=== PATIENT | male | born 1960 | race Caucasian/White ===

== ENCOUNTER → 2018-08-08 | Day surgery (SDC) | payer BC ==
[~2018-08-08] MED LIST: ASPIRIN EC 325 MG TAB PO ONE; ATROPINE SULFATE 1 MG/10 ML SYR IVP PRN; DIAZEPAM 5 MG TAB ONE; DIAZEPAM 5 MG TAB PO ONE; FAMOTIDINE 20 MG TAB ONE; FAMOTIDINE 20 MG TAB PO ONE; HEPARIN 10,000 UNIT/10 ML MDV (1,000 UNIT/ML) ONE; HYDROCODONE/APAP 5/325 TAB PO PRN; IOPAMIDOL (ISOVUE-370) 150 ML BTL IV ONE; LIDOCAINE 1% 300 MG/30 ML SDV ONE; MIDAZOLAM 2 MG/2 ML VIAL ONE; NS 1,000 ML IV ONE; ONDANSETRON 4 MG/2 ML VIAL IVP PRN; OXYCODONE/APAP 5/325 TAB PO PRN; VERAPAMIL 5 MG/2 ML VIAL ONE; diphenhydrAMINE 25 MG CAP PO ONE; fentaNYL 100 MCG/2 ML INJ ONE
[2018-08-08 09:29] LABS: PLATELET COUNT 217 10^3/uL (150-400)
[2018-08-08 09:53] LABS: INR 1.05 (0.83-1.16); PROTIME(PATIENT) 13.3 SEC (12.0-15.0)
--- NOTE | 2018-08-08 10:04 | PDHPUP ---
History & Physical Update H&P update statement: This history and physical update is based on an assessment of the patient which was completed after admission or registration (within 24 hours), but prior to the surgery/procedure. H&P update: H&P reviewed & patient examined, no change in patient's condition since H&P completed
--- NOTE | 2018-08-08 10:04 | PDPROPOC ---
Sedation Plan of Care Sedation Plan of Care: vital signs stable, mental status noted, patient educated of risks, benefits, alternatives, patient can tolerate sedation ASA Classification: ASA 1 Planned drugs: fentanyl, midazolam Mallampati Score: Class 2 Mallampati Reference Image: Patient passed 3-3-2 rule?: Yes
--- NOTE | 2018-08-08 11:17 | PDDXCAT ---
Diagnostic Cath Note - . Date: 08/08/18 Tool And Die Inspector: Svetlana Indication: other (Severe aortic stenosis, history of syncope, considering cardiovascular surgery.) - Procedure Access: right wrist Procedure: coronary angiography - Materials Left Heart Cath size: 5F Left Heart Cath materials: JL3.5 - Findings-Left Heart Catheterization LM: Large caliber vessel. Bifurcates into the left anterior descending and circumflex. No significant disease. LAD: Large caliber transapical vessel. 2 diagonal branches identified. No obstructive disease. LCX: Large caliber vessel. 2 obtuse marginal branches. No significant disease. RCA: Large caliber, dominant vessel. A bifurcating PDA and several small posterolateral branches are noted. There was an 80% lesion appreciated at the ostium of 1 of the branches of the bifurcating PDA. LVEF: The aortic valve was not crossed. Complications: None. Estimated blood loss: <50ml Closure method: TR Band Assessment: 1. Critical aortic stenosis with a peak transaortic velocity by echocardiography in excess of 4 m/sec. Preserved left ventricular systolic function. 2. History of syncope. 3. Single-vessel coronary artery disease with an 80% ostial lesion noted at the origin of a branch of the posterior descending artery. Plan: The patient will be referred to Cardiovascular surgery regarding consideration for aortic valve replacement surgery and single-vessel bypass versus hybrid procedure. Intervention: None.
--- NOTE | 2018-08-10 12:15 | CPEKG ---
Test Reason : OPEN Blood Pressure : / mmHG Vent. Rate : 085 BPM Atrial Rate : 086 BPM P-R Int : 167 ms QRS Dur : 084 ms QT Int : 354 ms P-R-T Axes : 043 -11 066 degrees QTc Int : 421 ms Sinus rhythm Atrial premature complexes Probable left atrial enlargement Confirmed by Han Melgar ([id number]) on 08/10/2018 12:14:43 PM Referred By: Shoaib Mota Confirmed By:Han Melgar
== END ==
LOC: FCATH 09:06
PROVIDERS: ATTEND Internal Medicine Cardiovascular Disease
DX: I35.0 Nonrheumatic aortic (valve) stenosis (principal); I25.10 Atherosclerotic heart disease of native coronary artery without angina pectoris; R55 Syncope and collapse; I50.9 Heart failure, unspecified; F41.9 Anxiety disorder, unspecified; K21.9 Gastro-esophageal reflux disease without esophagitis; I11.0 Hypertensive heart disease with heart failure; E78.5 Hyperlipidemia, unspecified; E66.01 Morbid (severe) obesity due to excess calories; G47.30 Sleep apnea, unspecified; R01.1 Cardiac murmur, unspecified; Z82.49 Family history of ischemic heart disease and other diseases of the circulatory system; Z82.3 Family history of stroke; Z96.651 Presence of right artificial knee joint; Z98.1 Arthrodesis status
CPT/HCPCS: 93005; 93454; C1769; J1644; J2250; J3010; Q9967

== ENCOUNTER → 2018-08-26 | Outpatient (CLI) | payer BC | LOC: FIMAGING 15:14 | PROVIDERS: ATTEND Thoracic Surgery (Cardiothoracic Vascular Surgery) | DX: I35.0 Nonrheumatic aortic (valve) stenosis (principal); I25.10 Atherosclerotic heart disease of native coronary artery without angina pectoris ==

== ENCOUNTER 2018-09-09 06:06 | Inpatient (IN) | payer BC ==
[~2018-09-09 06:06] MED LIST changes: +ALBUMIN 5% 250 ML BOTTLE IV ONE; -ASPIRIN EC 325 MG TAB PO ONE; -ATROPINE SULFATE 1 MG/10 ML SYR IVP PRN; +CARDIOPLEGIC SOLUTION 1,052.8 ML PF ONE; -DIAZEPAM 5 MG TAB ONE; -DIAZEPAM 5 MG TAB PO ONE; -FAMOTIDINE 20 MG TAB ONE; -FAMOTIDINE 20 MG TAB PO ONE; -HYDROCODONE/APAP 5/325 TAB PO PRN; +INSULIN REGULAR HUMAN 100 UNIT in NS 100 ML IV ONE; -IOPAMIDOL (ISOVUE-370) 150 ML BTL IV ONE; -LIDOCAINE 1% 300 MG/30 ML SDV ONE; +LIDOCAINE 2% 100 MG/5 ML SYR ONE; +MAGNESIUM SULFATE 1 GM/2 ML VIAL ONE; +MANNITOL 25% 12.5 GM/50 ML VIAL IVP ONE; -MIDAZOLAM 2 MG/2 ML VIAL ONE; +NOREPINEPHRINE BITARTRATE 16 MG in NS 250 ML IV ONE; -NS 1,000 ML IV ONE; -ONDANSETRON 4 MG/2 ML VIAL IVP PRN; -OXYCODONE/APAP 5/325 TAB PO PRN; +PHENYLEPHRINE HCL 50 MG in NS 250 ML IV ONE; +VERAPAMIL 5 MG, NITROGLYCERIN 2.5 MG, HEPARIN 500 UNIT, SODIUM BICARBONATE 0.2 MEQ in L... MISC ONE; -VERAPAMIL 5 MG/2 ML VIAL ONE; -diphenhydrAMINE 25 MG CAP PO ONE; -fentaNYL 100 MCG/2 ML INJ ONE
[2018-09-09] MEDS ORDERED: ceFAZolin 2 GM/DEXTROSE 100 ML IV ONE (06:33)
[2018-09-09] MEDS ORDERED: niCARdipine/NACL 200 ML IV ONE (06:33)
[2018-09-09] MEDS ORDERED: CITRATE DEXTROSE SOLN 500 ML BAG MISC ONE (06:33)
[2018-09-09] MEDS ORDERED: MUPIROCIN 2% 22 GM OINT NS ONE (06:33)
[2018-09-09] MEDS ORDERED: AMINOCAPROIC ACID 5 GM/20 ML VIAL IV ONE (06:33)
[2018-09-09] MEDS ORDERED: CALCIUM CHLORIDE 1 GM/10 ML INJ ONE ×2 (06:39→06:42)
[2018-09-09] MEDS ORDERED: PROTAMINE SULFATE 50 MG/5 ML VIAL IVP ONE ×2 (06:39→11:25)
[2018-09-09] MEDS ORDERED: MILRINONE/DEXTROSE/100 ML BAG IV ONE (06:39)
[2018-09-09] MEDS ORDERED: HEPARIN 10,000 UNIT/10 ML MDV (1,000 UNIT/ML) ONE ×2 (06:40→06:43)
[2018-09-09] MEDS ORDERED: AMINOCAPROIC ACID 5 GM/20 ML VIAL ONE ×2 (06:40→06:42)
[2018-09-09] MEDS ORDERED: NA BICARBONATE 50 MEQ/50 ML VIAL ONE (06:40)
[2018-09-09] MEDS ORDERED: ADENOSINE 6 MG/2 ML VIAL ONE (06:41)
[2018-09-09] MEDS ORDERED: ceFAZolin 1 GM VIAL ONE (06:41)
[2018-09-09] MEDS ORDERED: AMIODARONE HCL 150 MG/3 ML VIAL ONE ×2 (06:41→06:43)
[2018-09-09] MEDS ORDERED: niCARdipine/NACL/200 ML BAG IV ONE (06:41)
[2018-09-09] MEDS ORDERED: NITROGLYCERIN/D5W 50 MG/250 ML BOTTLE IV ONE (06:41)
[2018-09-09] MEDS ORDERED: DOPamine/DEXTROSE 400 MG/250 ML BAG IV ONE (06:41)
[2018-09-09] MEDS ORDERED: ALBUMIN 5% 250 ML BOTTLE IV ONE (06:42)
[2018-09-09] MEDS ORDERED: SODIUM BICARBONATE 50 MEQ/50 ML SYR ONE (06:42)
[2018-09-09] MEDS ORDERED: LIDOCAINE 2% 100 MG/5 ML SYR ONE (06:43)
[2018-09-09] MEDS ORDERED: CITRATE DEXTROSE SOLN 500 ML BAG ONE (06:43)
[2018-09-09] MEDS ORDERED: MAGNESIUM SULFATE 1 GM/2 ML VIAL ONE (06:43)
[2018-09-09] MEDS ORDERED: methylPREDNISolone SOD SUCC 1 GM/8 ML VIAL ONE (06:43)
[2018-09-09] MEDS ORDERED: MIDAZOLAM 2 MG/2 ML VIAL IVP ONE (06:53)
--- NOTE | 2018-09-09 06:53 | PDANEPAE ---
ANE History of Present Illness here for avr/cabg ANE Past Medical History - Cardiovascular History Hx Hypertension: Yes Hx Arrhythmias: No Hx Chest Pain: No Hx Coronary Artery / Peripheral Vascular Disease: No Hx CHF / Valvular Disease: Yes Hx Palpitations: Yes Cardiovascular History Comment: HLD - Pulmonary History Hx COPD: No Hx Asthma/Reactive Airway Disease: No Hx Recent Upper Respiratory Infection: No Hx Oxygen in Use at Home: No Hx Sleep Apnea: Yes Sleep Apnea Screening Result - Last Documented: Positive Pulmonary History Comment: ARI positive, uses cpap at night - Neurologic History Hx Cerebrovascular Accident: No Hx Seizures: No Hx Dementia: No Neurologic History Comment: peripheral neuropathy in hands and from knee down - Endocrine History Hx Diabetes: No - Renal History Hx Renal Disorders: No - Liver History Hx Hepatic Disorders: No - Neurological & Psychiatric Hx Hx Neurological and Psychiatric Disorders: Yes Neurological / Psychiatric History Comment: depression - Cancer History Hx Cancer: No - Congenital Disorder History Hx Congenital Disorders: No - GI History Hx Gastrointestinal Disorders: Yes Gastrointestinal History Comment: GERD - Other Health History Other Health History: wears glasses. hx DVT 2016. chronic sciatic pain, BLE' s. abdominal hernia - Chronic Pain History Chronic Pain: Yes - Surgical History Prior Surgeries: knee surgeries x 4. appendectomy. 2 level lumbar fusion. right wrist surgery ANE Review of Systems Review of systems is: negative Review of Systems: - Exercise capacity Exercise capacity: <4 METS METS (RN): 3 METS ANE Patient History - Allergies Allergies/Adverse Reactions: No Known Allergies Allergy (Verified 09/09/18 06:35) - Home Medications Home medications: home medication list seen and reviewed Home Medications: Atorvastatin Calcium [Lipitor 40 mg (*)] 40 mg PO HS 08/03/18 [Last Taken ] DULoxetine [Cymbalta 20 MG (RX)] 20 mg PO DAILY 08/03/18 [Last Taken 09/08/18] Doxazosin Mesylate [Cardura] 2 mg PO DAILY 08/03/18 [Last Taken 08/26/18] Finasteride [Proscar 5 MG (*)] 5 mg PO DAILY 08/03/18 [Last Taken 09/02/18] Furosemide [Lasix 40 MG (*)] 40 mg PO SUSA@09,21 08/03/18 [Last Taken 08/26/18] Ibuprofen [Motrin (*)] 200 - 600 mg PO DAILY PRN 08/03/18 [Last Taken 09/08/18] Metoprolol Tartrate [Lopressor 50 mg (*)] 50 mg PO DAILY 08/03/18 [Last Taken ] Omeprazole 20 mg PO DAILY 08/03/18 [Last Taken 09/07/18] Potassium Cl [Klor-Con 20 meq (*)] 20 meq PO BID 08/03/18 [Last Taken 08/19/18] Pramipexole Di-HCl [Mirapex] 0.75 mg PO DAILY 08/03/18 [Last Taken 09/08/18] Tadalafil [Cialis] 20 mg PO AD PRN 08/03/18 [Last Taken Unknown] tiZANidine HCL [Zanaflex 2MG (*)] 4 mg PO HS 08/03/18 [Last Taken 09/08/18] - NPO status NPO Status: no food or drink >8 hours - Smoking Hx Smoking Status: Never smoked - Family Anes Hx Family Hx Anesthesia Complications: none ANE Labs/Vital Signs - Vital Signs Vital Signs: reviewed preoperatively; see RN documention for details Height: 182.88 cm Weight: 145.15 kg ANE Physical Exam - Airway Neck exam: FROM Mallampati Score: Class 1 - Pulmonary Pulmonary: no respiratory distress - Cardiovascular Cardiovascular: regular rate and rhythym - ASA Status ASA Status: IV ANE Anesthesia Plan Anesthesia Plan: general endotracheal anesthesia Lines/Monitors: arterial line, central line, BASILIO
[2018-09-09] MEDS ORDERED: PAPAVERINE HCL 60 MG/2 ML SDV ONE ×2 (06:56→09:15)
[2018-09-09] MEDS ORDERED: VERAPAMIL 5 MG/2 ML VIAL ONE (06:56)
[2018-09-09] MEDS ORDERED: MINERAL OIL 10 ML VIAL ONE (06:57)
[2018-09-09] MEDS ORDERED: LR 1,000 ML IV ONE (07:05)
[2018-09-09] MEDS ORDERED: fentaNYL 250 MCG/5 ML INJ ONE ×2 (07:06→11:07)
[2018-09-09] MEDS ORDERED: PROPOFOL/EMULSION 500 MG/50 ML BOTTLE IV ONE ×2 (07:06→08:32)
[2018-09-09] MEDS ORDERED: ROCURONIUM 100 MG/10 ML VIAL ONE (07:07)
[2018-09-09] MEDS ORDERED: PHENYLEPHRINE HCL 100 MCG/ML SYR ONE ×3 (07:07→12:14)
[2018-09-09] MEDS ORDERED: ePHEDrine SULFATE 25 MG/5 ML SYR ONE ×3 (07:14→12:14)
[2018-09-09] MEDS ORDERED: KETAMINE 200 MG/20 ML VIAL ONE (08:23)
[2018-09-09] MEDS ORDERED: MIDAZOLAM 2 MG/2 ML VIAL ONE (09:36)
[2018-09-09] MEDS ORDERED: DEXMEDETOMIDINE HCL 400 MCG in NS 100 ML IV SCH (11:30)
[2018-09-09] MEDS ORDERED: ACETAMINOPHEN 650 MG SUPP PR PRN (12:15)
[2018-09-09] MEDS ORDERED: ONDANSETRON DISINTEGRATING 4 MG TAB PO PRN (12:15)
[2018-09-09] MEDS ORDERED: POLYETHYLENE GLYCOL 3350 17 GM PKT PO PRN (12:15)
[2018-09-09] MEDS ORDERED: POTASSIUM Cl (KCl) 50 ML IV PRN (12:15)
[2018-09-09] MEDS ORDERED: CEPACOL LOZENGE PO PRN (12:15)
[2018-09-09] MEDS ORDERED: LACTULOSE 20 GM/30 ML UDCUP PO PRN (12:15)
[2018-09-09] MEDS ORDERED: D50W 25 GM/50 ML SYR IVP PRN (12:15)
[2018-09-09] MEDS ORDERED: PANTOPRAZOLE SODIUM 40 MG VIAL IVP ONE (12:15)
[2018-09-09] MEDS ORDERED: MAGNESIUM HYDROXIDE 30 ML UDCUP PO PRN (12:15)
[2018-09-09] MEDS ORDERED: NS 1,000 ML IV SCH (12:15)
[2018-09-09] MEDS ORDERED: SODIUM CL NASAL 45 ML BTL EACHNARE PRN (12:15)
[2018-09-09] MEDS ORDERED: BISACODYL 10 MG SUPP PR PRN (12:15)
[2018-09-09] MEDS ORDERED: MEPERIDINE 25 MG/0.5 ML AMP IVP PRN (12:15)
[2018-09-09] MEDS ORDERED: METOCLOPRAMIDE 10 MG/2 ML VIAL IVP PRN (12:15)
[2018-09-09] MEDS ORDERED: ONDANSETRON 4 MG/2 ML VIAL IVP PRN (12:15)
[2018-09-09] MEDS ORDERED: INSULIN REGULAR HUMAN 100 UNIT in NS 100 ML IV SCH (12:30)
[2018-09-09] MEDS: ALBUMIN 5% 250 ML IV PRN ×2 (12:49→15:34)
--- NOTE | 2018-09-09 12:58 | PDMN ---
Medical Necessity Medical necessity: [facility] S290 Cardiac Valve Replacement or Repair, 5 days: 57 yo s /p CABG w/ aortic valve replacement, [facility] IP only
[2018-09-09] MEDS: niCARdipine/NACL 200 ML IV SCH (13:30)
[2018-09-09] MEDS ORDERED: ceFAZolin 2 GM/DEXTROSE 100 ML IV SCH ×2 (14:00→22:00)
[2018-09-09] MEDS ORDERED: KETOROLAC 30 MG/1 ML SDV ONE (14:15)
[2018-09-09] MEDS ORDERED: PANTOPRAZOLE SODIUM 40 MG VIAL ONE (14:26)
[2018-09-09] MEDS ORDERED: KETOROLAC 30 MG/1 ML SDV IVP ONE (14:45)
[2018-09-09] MEDS: ceFAZolin 2 GM/DEXTROSE 100 ML IV SCH ×2 (14:47→21:47)
--- NOTE | 2018-09-09 17:14 | GCON ---
[f rep st] CONSULTATION PULMONARY/CRITICAL CARE CONSULTATION. REFERRING PHYSICIAN: Ambrose Rodriguez DO REASON FOR REFERRAL: Evaluation and management of obstructive sleep apnea and hyperglycemia. HISTORY OF PRESENT ILLNESS: The patient is a 57-year-old male with a history of hypertension, sleep apnea, who was admitted to the hospital today for elective aortic valve repair due to possible bicusp id aortic valve with aortic stenosis. He also had single-vessel coronary artery disease. He was sym ptomatic with an episode of syncope. His intraoperative course was unremarkable, and he was extubate d shortly after return from the operating room. He currently states his pain control is fairly good, with both substernal and back pain. He denies dyspnea. PAST MEDICAL HISTORY: 1. Obstructive sleep apnea. He states that this was diagnosed about 30 years ago and he has been on CPAP ever since. He is unable to sleep well without CPAP, and he uses it nightly. [place], and he moved here about 2-1/2 years ago. Since that time, he has not had any [facility] ent supplies and no one has been checking his CPAP data downloads. He feels that he sleeps well with it. He sometimes has difficulty using [place] in [place] , because there is no power source for his CPAP. 2. Hypertension. 3. Obesity. MEDICATIONS: At the time of admission include atorvastatin, Cymbalta, finasteride, Lasix, metoprolol , omeprazole, pramipexole. FAMILY HISTORY: Unremarkable. REVIEW OF SYSTEMS: A 10-point review of systems adds nothing to the History of Present Illness. PHYSICAL EXAMINATION: GENERAL: The patient is awake and alert, in no acute distress. VITAL SIGNS: Blood pressure 103/55 with a heart rate of 61. He is afebrile. Oxygen saturations are 98% on 4 L. HEENT: Normocephalic and atraumatic. No icterus. NECK: No JVD. Trachea is midline. CHEST: Ga ar to auscultation. CARDIAC: Regular rate and rhythm without murmur. ABDOMEN: Soft, nontender. B owel sounds are present. EXTREMITIES: No clubbing, cyanosis, or edema. LABORATORY DATA: Chemistry group is remarkable only for glucose of 142. Hemoglobin is 14.6. Arteri al blood gas shows a pH of 7.35 with a pO2 of 121, a CO2 41 and a bicarbonate of 23. IMAGING: Chest x-ray shows some cardiomegaly and mild pulmonary venous hypertension. Images reviewe d by me. ASSESSMENT: 1. Status post aortic valve replacement and single-vessel CABG. The patient's perioperative course has been unremarkable, and he is extubated and comfortable several hours after returning from the ope rating room. 2. Hyperglycemia. The patient has mild hyperglycemia without prior history of diabetes. 3. Obstructive sleep apnea. The patient has long-standing obstructive sleep apnea that has been nickie ated with CPAP. It is unclear what the current settings are or whether they are efficacious, althoug h he reports good quality sleep. He has not had new supplies in several years. RECOMMENDATIONS: 1. Insulin drip. 2. The patient will use his own CPAP while here in the hospital. 3. I will see the patient as an outpatient, at which time I will review his CPAP download and order new supplies. /[id number]/MODL
--- NOTE | 2018-09-09 17:20 | CPEKG ---
Test Reason : OPEN Blood Pressure : / mmHG Vent. Rate : 059 BPM Atrial Rate : 059 BPM P-R Int : 189 ms QRS Dur : 154 ms QT Int : 527 ms P-R-T Axes : 073 052 -02 degrees QTc Int : 523 ms Sinus rhythm Left bundle branch block Confirmed by Raffi Diallo ([id number]) on 09/09/2018 5:20:14 PM Referred By: Ambrose Rodriguez Confirmed By:Raffi Diallo
--- NOTE | 2018-09-09 18:00 | GOP ---
[f rep st] OPERATIVE REPORT DATE OF OPERATION: 09/09/2018 SURGEON: Ambrose Rodriguez DO QUALITY ASSURANCE INSPECTOR: Geovany. ANESTHESIOLOGIST: Star. PREOPERATIVE DIAGNOSIS: Aortic stenosis and arteriosclerotic heart disease. POSTOPERATIVE DIAGNOSIS: Aortic stenosis and arteriosclerotic heart disease. PROCEDURE PERFORMED: 1. Aortic valve replacement with #27 Intuity bioprosthetic valve. 2. Free left internal mammary artery to the posterior descending artery. FINDINGS: DESCRIPTION OF PROCEDURE: Patient was consented for surgery, brought to the operating room, intubate d. Monitoring lines were placed. He was prepped and draped in sterile classical manner. Sternotomy was performed. Mammary was harvested. It was an excellent 2.8 to 3 mm vessel in its entire course. It was harvested and removed from the chest wall for free graft. Proximal and distal sites were ov ersewn. We then opened the pericardium, cannulated in the standard fashion. Bypass was begun. A ca rdioplegic arrest was obtained with antegrade cardioplegia, retrograde cardioplegia, topical hypother robert, and systemic cooling. Del Nido protocol was utilized. Initially, a very small 1.2-1.5 mm PDA w as grafted in its proximal portion with the free left internal mammary artery. It was tacked to the epicardium. We then opened the aorta and excised a heavily calcified trileaflet valve. Anulus was d ebrided. LV chamber was irrigated. We then sized the patient for a 27 Intuity valve. We placed 3 T iCron sutures at the misael of the annuli and passed them through the valve ring, positioned it in teri ce with Rumels, and deployed the valve under 5 atmospheres of pressure as per protocol. The device w as removed. The valve was inspected and appeared to be an excellent seat. We then closed the aorta in a two-layer fashion and de-aired the patient through the apex and ascending aorta. The proximal a nastomosis was brought off the cardioplegia site with continuous running 6-0 Prolene and tacked to th e epicardium to prevent torsion. Crossclamp was removed with suction to an LV sump and with needle i n the apex and ascending aorta in Trendelenburg. When no further air was identified, the patient was weaned from bypass. The heparin was reversed with protamine. Cannula was removed and oversewn. Tw o ventricular pacing wires and 1 left pleural and 1 mediastinal drain were placed. The thymic fat an d pericardium were closed. Chest was closed in standard fashion. Patient was returned to ICU in sta ble condition. /[id number]/MODL
--- NOTE | 2018-09-09 19:13 | POSTANESTH ---
Post Anesthetic Evaluation Cardiovascular Status: Normal, Stable Respiratory Status: Normal, Stable Level of Consciousness/Mental Status: Can Participate in Eval Pain Control: Adequate, Prn Tx Ordered Nausea/Vomiting Control: Adequate, Prn Tx Ordered Complications Possibly Related to Anesthesia: None Noted
[2018-09-09] MEDS: HYDROCODONE/APAP 5/325 TAB PO PRN ×2 (19:21→23:30)
[2018-09-09] MEDS: fentaNYL 100 MCG/2 ML INJ IVP PRN (21:17)
[2018-09-09] MEDS: MUPIROCIN 2% 22 GM OINT NS SCH (21:47)
[2018-09-09] MEDS: SENNOSIDES/DOCUSATE SODIUM TAB PO SCH (21:47)
[2018-09-10] MEDS: fentaNYL 100 MCG/2 ML INJ IVP PRN ×2 (00:19→07:09)
[2018-09-10] MEDS: niCARdipine/NACL 200 ML IV SCH (00:19)
[2018-09-10 05:36] LABS: PLATELET COUNT 155 10^3/uL (150-400)
[2018-09-10] MEDS: HYDROCODONE/APAP 5/325 TAB PO PRN ×2 (05:41→09:39)
[2018-09-10] MEDS: ceFAZolin 2 GM/DEXTROSE 100 ML IV SCH ×3 (05:41→23:24)
[2018-09-10] MEDS: HEPARIN 5,000 UNIT/0.5 ML INJ SC SCH ×3 (06:24→21:46)
--- NOTE | 2018-09-10 07:06 | SOAPPROG ---
SOAP Progress Note Assessment/Plan: Assessment: POD#1 AVR#27 Intuity bioprosthesis, CABG x 1 (free BROOKS-PDA) Sx severe - Trileaflet aortic valve replaced with rapid deployment tissue valve. Stable early postop course. Extubated without incident. No pressor support. No tachydysrhythmias. No sig volume overload. Antithrombotic prophylaxis with Coumadin x 2 months, target INR 2-3. AF prophylaxis with BB as tolerated. CAD w preserved LV systolic fx - s/p revascularization with arterial conduit. Secondary prevention with baby ASA, BB, and statin when appropriate. Acute expected blood loss anemia - Stable. No transfusions required. ARI on CPAP - Home device available. Morbid obesity, BMI > 40 - May need SNF rehab. Await PT recs. Plan: Routine POD#1 orders re lines, wires, drains, orals and mobility. Start home Cardura and low dose metoprolol. Probable tx to PCU later today. 09/10/18 07:01 Subjective: Doing ok. Satisfactory analgesia. No dizziness. No nausea. Thirsty. Objective: Vital Signs Temp Pulse Resp BP Pulse Ox 37 C 68 22 H 138/65 H 96 09/10/18 05:00 09/10/18 06:41 09/10/18 06:41 09/10/18 06:41 09/10/18 06:41 Laboratory Results 09/10/18 05:25 09/10/18 05:25 09/09/18 09/10/18 09/11/18 05:59 05:59 05:59 Intake Total 2779 Output Total 2247 Balance 532 Cardene overnoc for elev SBPs. HR 60s with PACs. Adequate fluid balance. Stable 4lpm suppl O2 req. Min CTOP. CXR-> No PTX, no sig pulm vasc congestion, left basilar atelectasis. Labs as expected. Physical Exam - Physical Exam General Appearance: alert, no apparent distress Respiratory: decreased breath sounds (bases), other (blakes x 2 y-d to pleurovac , serosang drainage, no air leak) Cardiac/Chest: regular rate, rhythm, other (Sternotomy CDI. Vwires intact.) Abdomen: normal bowel sounds, non-tender, soft Skin: warm/dry Extremities: swelling (1+ dependent) ICD10 Worksheet Patient Problems: Problems Problem Status Onset Acute blood loss as cause of postoperative anemia Acute Aortic stenosis Acute CAD (coronary artery disease) Acute Obesities, morbid Acute S/P AVR (aortic valve replacement) Acute S/P CABG x 1 Acute
[2018-09-10] MEDS ORDERED: traMADol 50 MG TAB PO PRN (08:17)
[2018-09-10] MEDS: METOPROLOL TARTRATE 25 MG TAB PO SCH ×2 (09:24→20:04)
[2018-09-10] MEDS: ASPIRIN 81 MG CHEWABLE TAB PO SCH (09:24)
[2018-09-10] MEDS: FINASTERIDE 5 MG TAB PO SCH (09:24)
[2018-09-10] MEDS: SENNOSIDES/DOCUSATE SODIUM TAB PO SCH ×2 (09:25→21:45)
[2018-09-10] MEDS: PANTOPRAZOLE SODIUM 40 MG TAB PO SCH (09:25)
[2018-09-10] MEDS: DOXAZOSIN MESYLATE 1 MG TAB PO SCH (09:26)
[2018-09-10] MEDS: DULoxetine 20 MG CAP PO SCH (09:26)
[2018-09-10] MEDS: MUPIROCIN 2% 22 GM OINT NS SCH ×2 (09:41→21:45)
[2018-09-10] MEDS ORDERED: fentaNYL 100 MCG/2 ML INJ IVP ONE (12:47)
[2018-09-10] MEDS ORDERED: KETOROLAC 15 MG/1 ML SDV IVP ONE (13:30)
[2018-09-10] MEDS ORDERED: FUROSEMIDE 20 MG/2 ML VIAL IVP ONE (15:00)
[2018-09-10] MEDS: oxyCODONE IR 5 MG TAB PO PRN ×2 (17:52→21:44)
[2018-09-10] MEDS: ACETAMINOPHEN 325 MG TAB PO PRN ×2 (18:35→23:22)
[2018-09-10] MEDS: tiZANidine HCL 2 MG TAB PO SCH (21:45)
[2018-09-11] MEDS: oxyCODONE IR 5 MG TAB PO PRN ×5 (01:42→18:28)
[2018-09-11] MEDS: ACETAMINOPHEN 325 MG TAB PO PRN ×3 (05:51→18:27)
[2018-09-11] MEDS: HEPARIN 5,000 UNIT/0.5 ML INJ SC SCH ×3 (05:52→21:41)
--- NOTE | 2018-09-11 08:01 | SOAPPROG ---
SOAP Progress Note Assessment/Plan: Assessment: POD#2 AVR#27 Intuity bioprosthesis, CABG x 1 (free BROOKS-PDA) Sx severe - Trileaflet aortic valve replaced with rapid deployment tissue valve. Stable early postop course. Extubated without incident. No pressor support. No dysrhythmias. No sig volume overload. Antithrombotic prophylaxis with Coumadin x 2 months, target INR 2-3. AF prophylaxis with BB as tolerated. CAD w preserved LV systolic fx - s/p revascularization with arterial conduit. Secondary prevention with baby ASA, BB, and statin when appropriate. Acute expected blood loss anemia - Stable. No transfusions required. ARI on CPAP - Home device available. Morbid obesity, BMI > 40 - Assoc w chronic back/knee pain and peripheral neuropathy. May need SNF rehab. Await PT recs. Plan: Remove V wires. Remove ant mediastinal drain. Cont metoprolol 12.5 mg BID. Intensify diuresis. Optimize timing and monitoring analgesia. Start coumadin. 5 mg today. Inc activity as tolerated. 09/11/18 07:58 Subjective: Rough night w pain d/t hard time deploying call button ("can't feel my hands with the neuropathy"). Comfortable now. Improving mobility and appetite. Objective: Vital Signs Temp Pulse Resp BP Pulse Ox 37.6 C 87 20 120/78 96 09/11/18 07:35 09/11/18 07:35 09/11/18 07:35 09/11/18 07:35 09/11/18 07:35 Laboratory Results 09/10/18 05:25 09/11/18 06:10 09/10/18 09/11/18 09/12/18 05:59 05:59 05:59 Intake Total 2779 1500 Output Total 2247 1640 Balance 532 -140 Holding SR w PACs Labile SBPs reactive to pain Stable suppl O2 req CTOP nearing removal criteria Balanced I/Os. + 4 kg overall Renal fx stable Physical Exam - Physical Exam General Appearance: alert, no apparent distress Respiratory: lungs clear (grossly), other (blakes x 2 to bulb suction, serosang drainage) Cardiac/Chest: regular rate, rhythm, other (Sternotomy CDI. Vwires intact) Abdomen: non-tender, soft Skin: warm/dry Extremities: swelling (1+ gen) ICD10 Worksheet Patient Problems: Problems Problem Status Onset Acute blood loss as cause of postoperative anemia Acute Aortic stenosis Acute CAD (coronary artery disease) Acute Obesities, morbid Acute S/P AVR (aortic valve replacement) Acute S/P CABG x 1 Acute
--- NOTE | 2018-09-11 09:32 | ASMTCMCOM ---
CM Note CM Note Notes: 09/11/2018 Case Management Note Discussed with RN. Pt is Post op day 2 open heart. PT note indicates outpatient rehab, OT note indicates home with no OT follow up. Daughter is an social science manager from [place]. Case Management d/c poc: independent with follow up as directed. Case Management available if needs change. Date Signed: 09/11/2018 09:31 AM Electronically Signed By:Alyce Espinosa RN
[2018-09-11] MEDS ORDERED: FUROSEMIDE 40 MG/4 ML VIAL IVP ONE ×2 (10:00→16:00)
[2018-09-11] MEDS: MUPIROCIN 2% 22 GM OINT NS SCH (10:00)
[2018-09-11] MEDS: DULoxetine 20 MG CAP PO SCH (10:04)
[2018-09-11] MEDS: METOPROLOL TARTRATE 25 MG TAB PO SCH ×2 (10:04→21:38)
[2018-09-11] MEDS: SENNOSIDES/DOCUSATE SODIUM TAB PO SCH ×2 (10:04→21:31)
[2018-09-11] MEDS: FINASTERIDE 5 MG TAB PO SCH (10:04)
[2018-09-11] MEDS: PANTOPRAZOLE SODIUM 40 MG TAB PO SCH (10:05)
[2018-09-11] MEDS: ASPIRIN 81 MG CHEWABLE TAB PO SCH (10:05)
[2018-09-11] MEDS: DOXAZOSIN MESYLATE 1 MG TAB PO SCH (10:05)
[2018-09-11] MEDS ORDERED: KETOROLAC 30 MG/1 ML SDV IVP SCH (12:00)
[2018-09-11] MEDS: KETOROLAC 30 MG/1 ML SDV IVP PRN ×2 (13:17→21:43)
[2018-09-11] MEDS ORDERED: POTASSIUM CL 20 MEQ TAB PO ONE (16:00)
[2018-09-11] MEDS ORDERED: WARFARIN SODIUM 5 MG TAB PO ONE (16:00)
[2018-09-11] MEDS: tiZANidine HCL 2 MG TAB PO SCH (21:33)
[2018-09-11] MEDS: HYDROCODONE/APAP 5/325 TAB PO PRN (23:27)
[2018-09-12] MEDS: HEPARIN 5,000 UNIT/0.5 ML INJ SC SCH ×3 (06:12→20:49)
[2018-09-12] MEDS: HYDROCODONE/APAP 5/325 TAB PO PRN ×2 (06:13→20:47)
[2018-09-12 06:46] LABS: INR 1.18 (0.83-1.16); PROTIME(PATIENT) 14.5 SEC (12.0-15.0)
--- NOTE | 2018-09-12 07:11 | SOAPPROG ---
SOAP Progress Note Assessment/Plan: Assessment: POD#3 AVR#27 Intuity bioprosthesis, CABG x 1 (free BROOKS-PDA) Sx severe - Trileaflet aortic valve replaced with rapid deployment tissue valve. Stable early postop course. Extubated without incident. No pressor support. No dysrhythmias. No sig volume overload. TCPWs out. Antithrombotic prophylaxis with Coumadin x 2 months, target INR 2-3. AF prophylaxis with BB as tolerated. CAD w preserved LV systolic fx - s/p revascularization with arterial conduit. Secondary prevention with baby ASA, BB, and statin. Acute expected blood loss anemia - Stable. No transfusions required. ARI on CPAP - Home device in use. Morbid obesity, BMI > 40 - Assoc w chronic back/knee pain and peripheral neuropathy. Skilled for outpt rehab by PT. Plan: Remove post mediastinal drain. Inc metoprolol tartrate to 25 mg BID. Switch to oral diuresis. Cont coumadin 5 mg daily. Cont inc activity as tolerated. Dispo - Anticipate home without services tomorrow afternoon vs Wed09/12/18 07:07 Subjective: Improved pain control. Restful sleep. Light activity (incl shower and stairs) well tolerated. Awaiting BM. Comfortable going home tomorrow. Objective: Vital Signs Temp Pulse Resp BP Pulse Ox 36.9 C 73 15 111/60 95 09/12/18 04:00 09/12/18 04:00 09/12/18 04:00 09/12/18 04:00 09/12/18 04:00 Laboratory Results 09/10/18 05:25 09/11/18 09/12/18 09/13/18 05:59 05:59 05:59 Intake Total 1500 750 Output Total 1840 915 5 Balance -340 -165 -5 PT 14.5 SEC (12.0-15.0) 09/12/18 06:15 INR 1.18 (0.83-1.16) H 09/12/18 06:15 SR/ST with PACs Labile SBPs, generally < 120 Stable suppl O2 req Adequate fluid balance. Within 3 kg admission wt. CTOP below removal criteria. Physical Exam - Physical Exam General Appearance: alert, no apparent distress Respiratory: lungs clear (grossly), other (familia to bulb suction, serosang drainage) Cardiac/Chest: regular rate, rhythm, other (Sternotomy CDI) Abdomen: non-tender, soft Skin: warm/dry Extremities: swelling (trace-1+ gen) ICD10 Worksheet Patient Problems: Problems Problem Status Onset Acute blood loss as cause of postoperative anemia Acute Aortic stenosis Acute CAD (coronary artery disease) Acute Obesities, morbid Acute S/P AVR (aortic valve replacement) Acute S/P CABG x 1 Acute
[2018-09-12] MEDS: oxyCODONE IR 5 MG TAB PO PRN ×3 (09:22→17:45)
[2018-09-12] MEDS: POTASSIUM CL 20 MEQ TAB PO SCH (09:22)
[2018-09-12] MEDS: DULoxetine 20 MG CAP PO SCH (09:23)
[2018-09-12] MEDS: FINASTERIDE 5 MG TAB PO SCH (09:23)
[2018-09-12] MEDS: DOXAZOSIN MESYLATE 1 MG TAB PO SCH (09:23)
[2018-09-12] MEDS: METOPROLOL TARTRATE 25 MG TAB PO SCH ×2 (09:23→20:47)
[2018-09-12] MEDS: FUROSEMIDE 40 MG TAB PO SCH (09:23)
[2018-09-12] MEDS: PANTOPRAZOLE SODIUM 40 MG TAB PO SCH (09:23)
[2018-09-12] MEDS: SENNOSIDES/DOCUSATE SODIUM TAB PO SCH ×2 (09:23→20:48)
[2018-09-12] MEDS: ASPIRIN 81 MG CHEWABLE TAB PO SCH (09:23)
[2018-09-12] MEDS: KETOROLAC 30 MG/1 ML SDV IVP PRN (11:30)
[2018-09-12] MEDS ORDERED: WARFARIN SODIUM 5 MG TAB PO ONE (16:00)
[2018-09-12] MEDS: tiZANidine HCL 2 MG TAB PO SCH (20:48)
[2018-09-12] MEDS ORDERED: ATORVASTATIN CALCIUM 40 MG TAB PO SCH (21:00)
[2018-09-13] MEDS: ACETAMINOPHEN 325 MG TAB PO PRN (04:16)
[2018-09-13] MEDS: HEPARIN 5,000 UNIT/0.5 ML INJ SC SCH ×2 (06:02→15:06)
[2018-09-13] MEDS: HYDROCODONE/APAP 5/325 TAB PO PRN (06:06)
[2018-09-13 06:20] LABS: INR 1.21 (0.83-1.16); PROTIME(PATIENT) 14.8 SEC (12.0-15.0)
--- NOTE | 2018-09-13 07:47 | SOAPPROG ---
SOAP Progress Note Assessment/Plan: Assessment: POD#4 AVR#27 Intuity bioprosthesis, CABG x 1 (free BROOKS-PDA) Sx severe - Trileaflet aortic valve replaced with rapid deployment tissue valve. Stable early postop course. Extubated without incident. No pressor support. No dysrhythmias. No sig volume overload. TCPWs and chest tubes out. Antithrombotic prophylaxis with Coumadin x 2 months, target INR 2-3. AF prophylaxis with BB as tolerated. CAD w preserved LV systolic fx - s/p revascularization with arterial conduit. Secondary prevention with baby ASA, BB, and statin. Acute expected blood loss anemia - Stable. No transfusions required. ARI on CPAP - Home device in use. Morbid obesity, BMI > 40 - Assoc w chronic back/knee pain and peripheral neuropathy. Skilled for outpt rehab by PT. Plan: Cont metoprolol tartrate 25 mg BID. Cont lasix 40 mg daily. Inc coumadin to 7.5 mg today. Cont inc activity as tolerated. Baseline postop echo. Dispo - Anticipate home without services later today. 09/13/18 07:46 Subjective: Doing well. Would like to go home this afternoon. Objective: Vital Signs Temp Pulse Resp BP Pulse Ox 37.4 C 97 23 H 110/69 91 L 09/13/18 04:00 09/13/18 04:00 09/13/18 04:00 09/13/18 04:00 09/13/18 04:00 Laboratory Results 09/10/18 05:25 09/13/18 06:00 09/12/18 09/13/18 09/14/18 05:59 05:59 05:59 Intake Total 750 1950 Output Total 915 1705 Balance -165 245 PT 14.8 SEC (12.0-15.0) 09/13/18 06:00 INR 1.21 (0.83-1.16) H 09/13/18 06:00 HR, rhythm and BP stable. Borderline suppl O2 req. Adequate fluid balance. CXR small left pleural effusion with basilar atelectasis INR beginning to rise Physical Exam - Physical Exam General Appearance: alert, no apparent distress Respiratory: decreased breath sounds (left base) Cardiac/Chest: regular rate, rhythm, other (Sternotomy CDI) Abdomen: non-tender, soft Skin: warm/dry Extremities: swelling (1+ dependent) ICD10 Worksheet Patient Problems: Problems Problem Status Onset Acute blood loss as cause of postoperative anemia Acute Aortic stenosis Acute CAD (coronary artery disease) Acute Obesities, morbid Acute S/P AVR (aortic valve replacement) Acute S/P CABG x 1 Acute
[2018-09-13] MEDS: METOPROLOL TARTRATE 25 MG TAB PO SCH (09:18)
[2018-09-13] MEDS: PANTOPRAZOLE SODIUM 40 MG TAB PO SCH (09:18)
[2018-09-13] MEDS: FINASTERIDE 5 MG TAB PO SCH (09:18)
[2018-09-13] MEDS: ASPIRIN 81 MG CHEWABLE TAB PO SCH (09:18)
[2018-09-13] MEDS: DULoxetine 20 MG CAP PO SCH (09:18)
[2018-09-13] MEDS: POTASSIUM CL 20 MEQ TAB PO SCH (09:18)
[2018-09-13] MEDS: FUROSEMIDE 40 MG TAB PO SCH (09:18)
[2018-09-13] MEDS: DOXAZOSIN MESYLATE 1 MG TAB PO SCH (09:18)
[2018-09-13] MEDS: oxyCODONE IR 5 MG TAB PO PRN ×2 (09:41→16:14)
--- NOTE | 2018-09-13 11:11 | ECHO ---
[email or web address] [address] [address] Main: [phone] Echocardiography Examination Transthoracic Name: ORALIA PEACE MR#: [id number] Study Date: 09/13/2018 Study Time: 09:48 AM Date of : 1960 Age: 57 year(s) Height: 182.9 cm (72 in.) Weight: 148.78 kg (328 lb.) BSA: 2.63 m2 Gender: Male Examination: Echo Contrast: Image Quality: Fair Rhythm: Heart Rate: BP: 117 mmHg/67 mmHg Indication: s./p AVR #27 Salazar Intuity Elite bioprosthesis Procedure Staff Referring Physician: Senior Attorney: Anette Frank [facility] Reading Physician: Matthew Ledbetter MD Requesting Provider: Ordering Physician: Lori Greenwood Indication: s./p AVR #27 Salazar Intuity Elite bioprosthesis Measurements Chambers AV/MV Label Value Normal Value Label Value Normal Value LVDd, 2D 5.8 cm (4.2cm - 5.9cm) AV PGmax 15 mmHg LADs, 2D 3.2 cm (3cm - 4cm) AV PGmean 7 mmHg Additional Vessels AV Vmax 1.92 m/s Label Value Normal Value MV E Vmax 1.4 m/s AoRoot, MM 2.5 cm (2.2cm - 3.7cm) MV A Vmax 1.13 m/s MV E/A 1.24 MV E/E' lateral 20.5 MV E/E' septal 22.4 (0.5 - 1.7) MV E' septal 0.06 m/s MV E' lateral 0.07 m/s MV E/E' mean 21.54 MV E' mean 0.06 m/s Conclusions Left Ventricle: EF range is estimated at 55 % - 60 %. Aortic Valve: Patient: ORALIA PEACE Study Date: 09/13/2018 Page 1 of 3 09:48 AM There is a AV bioprosthetic valve well seated. . No aortic valve regurgitation. Aortic Valve Measurements AV PGmax is 15 mmHg. AV PGmean is 7 mmHg. Pericardium: No pericardial effusion. Findings Left Ventricle: Left ventricle is normal in size. Normal global systolic left ventricular function. EF range is estimated at 55 % - 60 %. Left ventricle wall thickness is normal. There are no regional wall motion abnormalities. IVS: The septum is intact. Right Ventricle: Normal size right ventricle. Right ventricular wall thickness is normal. Right ventricular systolic function is normal. Left Atrium: The left atrium is normal in size. IAS: Normal appearing atrial septum. Right Atrium: The right atrium is normal in size. Mitral Valve: Normal . No significant mitral regurgitation. No mitral valve stenosis. Aortic Valve: There is a AV bioprosthetic valve well seated. . No aortic valve regurgitation. Aortic Valve Measurements AV Vmax is 1.92 m/s. AV PGmax is 15 mmHg. AV PGmean is 7 mmHg. Tricuspid Valve: Tricuspid valve leaflets are normal in appearance and function. No tricuspid regurgitation. No tricuspid valve stenosis. Pulmonary artery pressure normal. Pulmonic Valve: Pulmonic valve is poorly visualized. No pulmonic valve regurgitation is evident. There is no pulmonic valve stenosis. Aorta: The aorta is normal. The aortic root size in M-mode measures 2.5 cm. Aorta Measurements AoRoot, MM is 2.5 cm. IVC: The inferior vena cava is poorly visualized. Pericardium: A pericardial fat pad is present. No pericardial effusion. No pleural effusion present. Exam Details Procedure Ordered: Echo Procedure Status: Routine study Image Quality: Fair Facility Location: Cardiac Echo 1 (No Signature Object) Patient: ORALIA PEACE Study Date: 09/13/2018 Page 2 of 3 09:48 AM Patient: ORALIA PEACE Study Date: 09/13/2018 Page 3 of 3 09:48 AM [id number]
--- NOTE | 2018-09-13 13:56 | PDHOMEO2F ---
Home Oxygen Face to Face Home Orders: I certify that a physician or a nurse practitioner or physician's office clerk assistant has had a [id number] encounter with this patient on the date of this order due to the diagnosis listed, which relates to the primary reason the patient requires home oxygen. Alternative treatments have been tried, or considered, and deemed ineffective. It is anticipated that supplemental oxygen will result in improvement with treatment. Home oxygen qualifying diagnosis: CAD Home oxygen secondary diagnosis: ARI SpO2 on room air (%): 85-87% Frequency of home oxygen needed: continuous Home oxygen liters per minute: 1 Home oxygen delivery device: nasal cannula, via CPAP Concentrator: Yes E-tanks for mobility and back up: Yes If ordering portable O2, is the patient mobile in the home?: Yes I certify that, based on these findings, the home oxygen is medically necessary for this patient for the following length of time. Length of time home oxygen needed: 1 month
[2018-09-13] MEDS ORDERED: WARFARIN SODIUM 7.5 MG TAB PO ONE (16:00)
--- NOTE | 2018-09-13 16:29 | PDDCSUM ---
Discharge Summary Discharge Summary: DATE OF ADMISSION: 09/09/18 DATE OF DISCHARGE: 09/13/18 DISPOSITION: Home, self-care PRINCIPAL ADMISSION DIAGNOSES: 1. Critical aortic valve stenosis 2. Single vessel coronary artery disease PRINCIPAL DISCHARGE DIAGNOSES: 1. Status post aortic valve replacement with a bioprosthesis 2. Status post coronary artery bypass grafting x 1 with an arterial conduit HISTORY OF PRESENT ILLNESS: 57 yo morbidly obese male with multiple cardiac risk factors, severe , branch vessel CAD, and class III functional symptoms, admitted for elective AVR/CABG. PERTINENT PAST MEDICAL HISTORY: HTN, dyslipidemia, ARI on CPAP, morbid obesity with BMI > 40, chronic dCHF, chronic low leg edema, restless legs, chronic back pain, peripheral neuropathy, depression with anxiety, BPH MEDICATIONS ON ADMISSION: Zanaflex 4 mg HS, Mirapex 0.75 mg daily, Prilosec 20 mg daily, Lasix 40 mg BID on the weekends, Klor-Con 20 meq BID on the weekends, Metoprolol tartrate 50 mg daily, Lipitor 40 mg daily, Proscar 5 mg daily, Cardura 2 mg daily, Cymbalta 20 mg daily, Cialis 20 mg prn, Ibuprofen 200-600 mg daily prn ALLERGIES/SENSITIVITIES: NKDA CONSULTANTS: Pulmonology/critical care ([place]) PROCEDURES/IMAGIN/5 ([facility]): Aortic valve replacement with a 27 mm Salazar Intuity Elite bovine pericardial bioprosthesis. CABG x 1 (free BROOKS-PDA). Takedown left internal mammary artery. 09/13 ([place]): Transthoracic echocardiogram: Nl chamber size. Nl bioprosthetic aortic valve fx. LVEF 55-60%. ABBREVIATED HOSPITAL COURSE BY ACTIVE PROBLEM LIST: 1. Sx severe - Trileaflet aortic valve replaced with a rapid deployment tissue valve. Stable early postop course. Extubated without incident. No dysrhythmias. Moderate volume overload actively diuresed with stable renal fx. Antithrombotic prophylaxis with Coumadin x 2 months, target INR 2-3. AF prophylaxis with BB as tolerated. 2. CAD w preserved LV systolic fx - s/p revascularization with an arterial conduit. Secondary prevention with baby ASA, BB, and statin. 3. Morbid obesity, BMI > 40 - Assoc w chronic back/knee pain and peripheral neuropathy. Skilled for outpt rehab by PT. DISCHARGE CLINICAL INFORMATION: Sternum grossly stable. Sternotomy CDI, sutured, +Dermabond. LEs 1-2+ dependent edema HR 70s. SBP 110s. SpO2 85% RA sleeping, 87% RA awake, correcting to > 90% on 1 lpm O2. Wt 2 kg above admission at 145.2 kilos. Hgb 13.3, HCT 40.1, Plt 155, Na 136, K 4.2, Cr 0.9 Coumadin flow sheet: Date INR mg 09/11 n/d 5 09/12 1.18 5 09/13 1.21 7.5 DISCHARGE MEDICATIONS: As on admission with the following adjustments: 1. Hold Cialis 2. Hold Ibuprofen 3. Increase Lasix to 40 mg daily 4. Increase Klor-Con to 20 meq daily 5. Change metoprolol tartrate to 25 mg BID NEW prescriptions: 1. Coumadin 5 mg, take 7.5 mg daily or as directed by INR/anticoagulation clinic 2. ASA 81 mg daily. Hold for INR > 3 3. Oxycodone IR 5 mg one-half to two tabs q 4h prn incisional discomfort 4. Oxygen @ 1pm continuously or as directed by SpO2 FOLLOW UP APPOINTMENTS: 1. CV surgery: with Dr Rodriguez at [facility] on 09/20 at 11:00 am. 2. Cardiology: with Dr Mota at [facility] within 4-6 weeks. Appointment to be established during surgical visit. 3. Pulmonology: with Dr Jones at [facility] to review CPAP downloads and order new supplies as directed. FOLLOW UP TESTIN. INR at [facility] anticoagulation clinic on 09/16 at 2:15pm. 2. CXR prior to surgical appointment.
[2018-09-13 16:31] VITALS: BP 100/63
== END 2018-09-13 16:45 | disposition home or self-care (01) | DRG 220 ==
LOC: F2W 06:06 → F2N 12:27 → F2W 09-10 11:45
PROVIDERS: ADMIT Thoracic Surgery (Cardiothoracic Vascular Surgery); ATTEND Thoracic Surgery (Cardiothoracic Vascular Surgery)
PROC: 02100Z9 Bypass Coronary Artery, One Artery from Left Internal Mammary, Open Approach (ICD-10-PCS; principal; 2018-09-09 07:15)
PROC: 02RF08Z Replacement of Aortic Valve with Zooplastic Tissue, Open Approach (ICD-10-PCS; principal; 2018-09-09 07:15)
PROC: 5A1221Z Performance of Cardiac Output, Continuous (ICD-10-PCS; principal; 2018-09-09 07:15)
DX: I35.0 Nonrheumatic aortic (valve) stenosis (principal); I11.0 Hypertensive heart disease with heart failure; I50.32 Chronic diastolic (congestive) heart failure; I25.10 Atherosclerotic heart disease of native coronary artery without angina pectoris; E66.01 Morbid (severe) obesity due to excess calories; E78.5 Hyperlipidemia, unspecified; G47.33 Obstructive sleep apnea (adult) (pediatric); G25.81 Restless legs syndrome; G89.29 Other chronic pain; G62.9 Polyneuropathy, unspecified; F32.9 Major depressive disorder, single episode, unspecified; F41.9 Anxiety disorder, unspecified; N40.0 Benign prostatic hyperplasia without lower urinary tract symptoms
CPT/HCPCS: 82435-PO; 82565-PO; 82947-PO; 83605-ER; 84132-PO; 84295-PO; 84520-PO; 85014-ER; 97116-GP; 97161-GP; 97165-GO; 97530-GO; 97535-GO; J0153; J0282; J0690; J1265; J1644; J1815; J1885; J1940; J2001; J2150; J2250; J2260; J2270; J2370; J2405; J2440; J2704; J2720; J2930; J3010; J3475; P9041

== ENCOUNTER → 2018-09-20 | Outpatient (CLI) | payer BC | LOC: FIMAGING 10:20 | PROVIDERS: ATTEND Thoracic Surgery (Cardiothoracic Vascular Surgery) | DX: J90 Pleural effusion, not elsewhere classified (principal); J98.11 Atelectasis; I51.7 Cardiomegaly ==

== ENCOUNTER → 2018-10-06 | Outpatient (CLI) | payer BC | LOC: FIMAGING 11:32 | PROVIDERS: ATTEND Internal Medicine Cardiovascular Disease | DX: R91.8 Other nonspecific abnormal finding of lung field (principal); I51.7 Cardiomegaly; Z95.1 Presence of aortocoronary bypass graft; Z95.2 Presence of prosthetic heart valve ==